=== PATIENT | male | born 1960 | race Two or more races ===

== ENCOUNTER 2017-01-22 13:11 | Emergency (ER) | payer OTHER ==
[~2017-01-22] VITALS: Ht 182.9 cm; Wt 86.2 kg
[~2017-01-22 13:11] MED LIST: ALPR0.5T PO; DOCU100C58 PO; PANT40TA2 PO
--- NOTE | 2017-01-22 13:25 | NUR ---
PT AMBULATORY TO ER BED 11. C/O COUGH AND CONGESTION X 2 WEEKS. ALSO C/O LOWER BACK PAIN. NO RECENT TRAUMA. WORKS ON CONSTRUCTION. AWAITING MD VALDERRAMA.
--- NOTE | 2017-01-22 13:29 | NUR ---
DAVIDE SENIOR RADIATION PROTECTION TECHNICIAN AT BEDSIDE FOR EVAL.
--- NOTE | 2017-01-22 13:53 | NUR ---
RADIOLOGY AT BEDSIDE FOR CHEST XRAY.
[2017-01-22] MEDS ORDERED: predniSONE 20 MG TABLET ONE (15:28)
[2017-01-22] MEDS ORDERED: predniSONE 20 MG TABLET PO ONE (15:30)
--- NOTE | 2017-01-22 15:39 | NUR ---
Patient discharged to home in stable condition. Written and verbal after care instructions given. Patient verbalizes understanding of instruction.
[2017-01-22 15:40] VITALS: BP 115/76
== END 2017-01-22 15:41 | disposition home or self-care (01) ==
LOC: ER 13:12
DX: J20.9 Acute bronchitis, unspecified (principal); I10 Essential (primary) hypertension; F41.9 Anxiety disorder, unspecified; K21.9 Gastro-esophageal reflux disease without esophagitis; J45.909 Unspecified asthma, uncomplicated; Z88.8 Allergy status to other drugs, medicaments and biological substances; Z98.890 Other specified postprocedural states; Z87.442 Personal history of urinary calculi
CPT/HCPCS: 71010; 99283; A4606; J7040; J7512; Z7610

== ENCOUNTER 2017-01-28 14:32 | Emergency (ER) | payer OTHER ==
[~2017-01-28] VITALS: Ht 180.3 cm; Wt 93.4 kg
--- NOTE | 2017-01-28 14:45 | NUR ---
PT CAME IN FOR ANXIETY, SUBSTERNAL CHEST PAIN X 2 DAYS. TOOK ATIVAN AND XANAX TODAY IN AM. NAD NOTED. VSS. SEEN BY MD FOR EVAL. SAFETY AND COMFORT MEASURES PROVIDED. WILL MONITOR.
[2017-01-28 15:09] LABS: BASOPHILS % (AUTO) 0.4 % (0.0-2.0); EOSINOPHILS # (AUTO) 0.1 /CMM (0.0-0.7); EOSINOPHILS % (AUTO) 1.3 % (0.0-6.0); HEMATOCRIT 40 % (39-51); HEMOGLOBIN 13.1 g/dL (13.5-17.5); LYMPHOCYTES # (AUTO) 1.8 /CMM (0.8-4.8); LYMPHOCYTES % (AUTO) 28.7 % (20.0-44.0); MEAN CORPUSCULAR HEMOGLOBIN 29 PG (26.0-33.0); MEAN CORPUSCULAR HGB CONC 33 g/dl (31.0-36.0); MEAN CORPUSCULAR VOLUME 89 fL (80-96); MONOCYTES # (AUTO) 0.6 /CMM (0.1-1.30); MONOCYTES % (AUTO) 9.7 % (2.0-12.0); NEUTROPHILS # (AUTO) 3.8 /CMM (1.8-8.9); NEUTROPHILS % (AUTO) 59.9 % (43.0-81.0); PLATELET COUNT (AUTO) 227 /CMM (150-450); RDW COEFFICIENT OF VARIATION 12.6 (11.5-15.0); RED BLOOD CELL COUNT(AUTO) 4.49 MIL/uL (4.5-6.0); WHITE BLOOD COUNT (AUTO) 6.3 K/uL (4.3-11.0)
[2017-01-28 15:19] LABS: CALCIUM, SERUM 8.3 mg/dL (8.5-10.1); CARBON DIOXIDE 29 mmol/L (21-32); CHLORIDE 104 mmol/L (98-107); CREATININE 1.1 mg/dL (0.6-1.3); GLUCOSE 100 mg/dL (74-106); POTASSIUM 3.4 mmol/L (3.5-5.1); SODIUM SERUM 140 mmol/L (136-145); UREA NITROGEN, BLOOD 17 mg/dL (7-18)
[2017-01-28 15:23] LABS: INR 0.93 (0.87-1.13); PROTHROMBIN TIME 9.7 SECS (9.5-12.7)
[2017-01-28 15:28] LABS: TROPONIN I < 0.017 ng/mL (0.00-0.056)
[2017-01-28 15:53] VITALS: BP 138/75
--- NOTE | 2017-01-28 15:53 | NUR ---
Patient discharged to home in stable condition. Written and verbal after care instructions given. Patient verbalizes understanding of instruction.
== END 2017-01-28 15:54 | disposition home or self-care (01) ==
LOC: ER 14:34
DX: F41.9 Anxiety disorder, unspecified (principal); R07.89 Other chest pain; I10 Essential (primary) hypertension; J45.909 Unspecified asthma, uncomplicated; K21.9 Gastro-esophageal reflux disease without esophagitis; Z87.442 Personal history of urinary calculi
CPT/HCPCS: 36415; 71010; 80048; 84484; 85025; 85730; 93005; 99285; A4606; Z7610

== ENCOUNTER 2017-02-12 13:24 | Emergency (ER) | payer OTHER ==
[~2017-02-12] VITALS: Ht 180.3 cm; Wt 88.9 kg
--- NOTE | 2017-02-12 13:26 | NUR ---
PT AMBULATORY TO ER BED 10. C/O CHEST PAIN SINCE LAST NIGHT. PT APPEARS ANXIOUS. SEEN IN ER MULTIPLE TIME FOR SAME REASON. PLACED ON MONITOR. NAD NOTED. AWAITING MD VALDERRAMA.
--- NOTE | 2017-02-12 13:48 | NUR ---
DAVIDE UNDERCOLLAR BASTER AT BEDSIDE FOR EVAL.
--- NOTE | 2017-02-12 14:26 | NUR ---
RADIOLOGY AT BEDSIDE FOR CHEST XRAY.
[2017-02-12] MEDS ORDERED: ASPIRIN 325 MG TABLET ONE (14:28)
[2017-02-12] MEDS ORDERED: ASPIRIN 325 MG TABLET PO ONE (14:30)
[2017-02-12 14:32] LABS: BASOPHILS % (AUTO) 0.4 % (0.0-2.0); EOSINOPHILS # (AUTO) 0.1 /CMM (0.0-0.7); EOSINOPHILS % (AUTO) 2.4 % (0.0-6.0); HEMATOCRIT 40 % (39-51); HEMOGLOBIN 13.4 g/dL (13.5-17.5); LYMPHOCYTES # (AUTO) 1.3 /CMM (0.8-4.8); LYMPHOCYTES % (AUTO) 30.1 % (20.0-44.0); MEAN CORPUSCULAR HEMOGLOBIN 30 PG (26.0-33.0); MEAN CORPUSCULAR HGB CONC 34 g/dl (31.0-36.0); MEAN CORPUSCULAR VOLUME 89 fL (80-96); MONOCYTES # (AUTO) 0.5 /CMM (0.1-1.30); MONOCYTES % (AUTO) 11.3 % (2.0-12.0); NEUTROPHILS # (AUTO) 2.5 /CMM (1.8-8.9); NEUTROPHILS % (AUTO) 55.8 % (43.0-81.0); PLATELET COUNT (AUTO) 223 /CMM (150-450); RDW COEFFICIENT OF VARIATION 13.9 (11.5-15.0); RED BLOOD CELL COUNT(AUTO) 4.51 MIL/uL (4.5-6.0); WHITE BLOOD COUNT (AUTO) 4.4 K/uL (4.3-11.0)
[2017-02-12 14:42] LABS: CALCIUM, SERUM 8.4 mg/dL (8.5-10.1); CARBON DIOXIDE 25 mmol/L (21-32); CHLORIDE 108 mmol/L (98-107); GLUCOSE 94 mg/dL (74-106); SODIUM SERUM 143 mmol/L (136-145)
[2017-02-12 14:43] LABS: UREA NITROGEN, BLOOD 16 mg/dL (7-18)
[2017-02-12 14:46] LABS: CREATININE 1.3 mg/dL (0.6-1.3)
[2017-02-12 14:47] LABS: INR 0.9 (0.87-1.13); PROTHROMBIN TIME 9.6 SECS (9.5-12.7)
[2017-02-12 14:54] LABS: TROPONIN I < 0.017 ng/mL (0.00-0.056)
[2017-02-12 15:52] VITALS: BP 123/76
--- NOTE | 2017-02-12 15:52 | NUR ---
Patient discharged to home in stable condition. Written and verbal after care instructions given. Patient verbalizes understanding of instruction.IV removed. Catheter intact and site benign. Pressure and 4x4 applied to site. No bleeding noted.
== END 2017-02-12 15:53 | disposition home or self-care (01) ==
LOC: ER 13:26
DX: R07.89 Other chest pain (principal); F41.9 Anxiety disorder, unspecified; I10 Essential (primary) hypertension; K21.9 Gastro-esophageal reflux disease without esophagitis; J45.909 Unspecified asthma, uncomplicated; Z88.8 Allergy status to other drugs, medicaments and biological substances; Z87.442 Personal history of urinary calculi
CPT/HCPCS: 36415; 71010; 80048; 84484; 85025; 85730; 93005 ×2; 99285; A4606; Z7610

== ENCOUNTER 2017-04-05 11:43 | Emergency (ER) | payer OTHER ==
[~2017-04-05] VITALS: Ht 180.3 cm; Wt 93.9 kg
[2017-04-05 12:10] VITALS: BP 114/73
--- NOTE | 2017-04-05 12:10 | NUR ---
bib self c/o hemorrhoid pain since tuesday, pt states had hemorhhoids before, nad noted, vss, skin warm, pt put on hospital gown, waiting for md tang.
== END 2017-04-05 12:57 | disposition home or self-care (01) ==
LOC: ER 11:44
DX: K59.4 Anal spasm (principal); I10 Essential (primary) hypertension; J45.909 Unspecified asthma, uncomplicated; K21.9 Gastro-esophageal reflux disease without esophagitis; F41.9 Anxiety disorder, unspecified; Z87.442 Personal history of urinary calculi; Z98.890 Other specified postprocedural states; Z88.8 Allergy status to other drugs, medicaments and biological substances
CPT/HCPCS: 99283; A4606; Z7610

== ENCOUNTER 2017-07-06 14:32 | Emergency (ER) | payer OTHER ==
[~2017-07-06] VITALS: Ht 180.3 cm; Wt 94.3 kg
[2017-07-06 14:41] VITALS: BP 114/68
== END 2017-07-06 15:36 | disposition home or self-care (01) ==
LOC: ER 14:33
DX: F41.9 Anxiety disorder, unspecified (principal); N40.1 Benign prostatic hyperplasia with lower urinary tract symptoms; I10 Essential (primary) hypertension; K21.9 Gastro-esophageal reflux disease without esophagitis; J45.909 Unspecified asthma, uncomplicated; Z87.442 Personal history of urinary calculi; Z88.8 Allergy status to other drugs, medicaments and biological substances
CPT/HCPCS: A4606; Z7610

== ENCOUNTER 2017-12-20 18:16 | Emergency (ER) | payer OTHER ==
[~2017-12-20] VITALS: Ht 180.3 cm; Wt 95.7 kg
[2017-12-20 19:00] VITALS: BP 106/78
[2017-12-20] MEDS ORDERED: CARISOPRODOL 350 MG TABLET ONE (20:22)
[2017-12-20] MEDS ORDERED: CARISOPRODOL 350 MG TABLET PO ONE (20:30)
== END 2017-12-20 20:25 | disposition home or self-care (01) ==
LOC: ER 18:26
DX: M25.512 Pain in left shoulder (principal); M25.511 Pain in right shoulder; R51 Headache; R42 Dizziness and giddiness; M54.2 Cervicalgia; K21.9 Gastro-esophageal reflux disease without esophagitis; I10 Essential (primary) hypertension; J45.909 Unspecified asthma, uncomplicated; F41.9 Anxiety disorder, unspecified; Z87.442 Personal history of urinary calculi; Z98.890 Other specified postprocedural states; Z88.8 Allergy status to other drugs, medicaments and biological substances
CPT/HCPCS: A4606; Z7610

== ENCOUNTER 2017-12-31 11:56 | Emergency (ER) | payer OTHER ==
[~2017-12-31] VITALS: Ht 180.3 cm; Wt 95.7 kg
--- NOTE | 2017-12-31 12:18 | NUR ---
PT TO ED DT LLQ PAIN AND NAUSEA SINCE YESTERDAY NIGHT. ABDOMEN NON TENDERED AND NON DISTENDED, SKIN IS WARM TO TOUCH AND NON DIAPHORETIC, PT IS AFEBRILE. VSS
--- NOTE | 2017-12-31 12:19 | NUR ---
LINE STARTED ON L AC G18, BLOOD DRAWN FROM LINE AND SENT TO LAB
[2017-12-31] MEDS ORDERED: IV NS 0.9% 1,000 ML BAG IV ONE (12:30)
[2017-12-31 12:31] LABS: BASOPHILS % (AUTO) 0.5 % (0.0-2.0); HEMATOCRIT 43 % (39-51); HEMOGLOBIN 14.5 g/dL (13.5-17.5); LYMPHOCYTES # (AUTO) 1.4 /CMM (0.8-4.8); LYMPHOCYTES % (AUTO) 27.9 % (20.0-44.0); MEAN CORPUSCULAR HEMOGLOBIN 30 PG (26.0-33.0); MEAN CORPUSCULAR HGB CONC 34 g/dl (31.0-36.0); MEAN CORPUSCULAR VOLUME 89 fL (80-96); MONOCYTES # (AUTO) 0.6 /CMM (0.1-1.30); NEUTROPHILS # (AUTO) 2.8 /CMM (1.8-8.9); NEUTROPHILS % (AUTO) 58.6 % (43.0-81.0); PLATELET COUNT (AUTO) 233 /CMM (150-450); RDW COEFFICIENT OF VARIATION 12.9 (11.5-15.0); RED BLOOD CELL COUNT(AUTO) 4.82 MIL/uL (4.5-6.0); WHITE BLOOD COUNT (AUTO) 4.8 K/uL (4.3-11.0)
[2017-12-31 12:43] LABS: APPEARANCE,URINE Clear (CLEAR); BILIRUBIN,URINE Negative (NEGATIVE); BLOOD, URINE Negative Ery/uL (NEGATIVE); COLOR,URINE Yellow (YELLOW); KETONES,URINE Trace (NEGATIVE); LEUKOCYTE ESTERASE ,URINE Negative (NEGATIVE); NITRITE, URINE Negative (NEGATIVE); PROTEIN,URINE Negative (NEGATIVE); UGLUCOSE Negative (NEGATIVE); UROBILINOGEN,URINE 0.2 EU/dL (0.2)
[2017-12-31 12:45] LABS: CALCIUM, SERUM 8.7 mg/dL (8.5-10.1); CREATININE 1.1 mg/dL (0.6-1.3)
[2017-12-31 12:55] LABS: RBC,URINE 0-2 /HPF (0-2)
[2017-12-31 12:56] LABS: ALBUMIN 3.9 g/dL (3.4-5.0); BILIRUBIN,DIRECT 0.1 mg/dL (0.0-0.2); BILIRUBIN,TOTAL 0.4 mg/dL (0.2-1.0); TOTAL PROTEIN, SERUM 7.3 g/dL (6.4-8.2)
[2017-12-31 12:56] LABS: BACTERIA,URINE Rare /HPF (None Seen); SQUAMOUS EPITHELIAL CELL,UR Rare /HPF (None Seen); WBC,URINE 0-2 /HPF (0-3)
[2017-12-31 13:56] VITALS: BP 124/80
--- NOTE | 2017-12-31 13:56 | NUR ---
Patient discharged to home in stable condition. Written and verbal after care instructions given. Patient verbalizes understanding of instruction.IV removed. Catheter intact and site benign. Pressure and 4x4 applied to site. No bleeding noted. PT AMBULATED WITH STEADY GAIT UPON DC
== END 2017-12-31 13:57 | disposition home or self-care (01) ==
LOC: ER 12:01
DX: R10.32 Left lower quadrant pain (principal); I10 Essential (primary) hypertension; J45.909 Unspecified asthma, uncomplicated; K21.9 Gastro-esophageal reflux disease without esophagitis; F41.9 Anxiety disorder, unspecified; N40.0 Benign prostatic hyperplasia without lower urinary tract symptoms; Z98.890 Other specified postprocedural states; Z87.442 Personal history of urinary calculi; Z88.8 Allergy status to other drugs, medicaments and biological substances; Z79.899 Other long term (current) drug therapy
CPT/HCPCS: 36415; 74176; 80048; 80076; 81001; 83690; 85025; 99285; A4606; J7030; Z7610; 81000-TC

== ENCOUNTER 2018-03-06 16:30 | Emergency (ER) | payer OTHER ==
[~2018-03-06] VITALS: Ht 175.3 cm; Wt 74.8 kg
--- NOTE | 2018-03-06 17:05 | NUR ---
AAOX3, C/O mid sternal chest pain, non radiating x 3 days denies any SOB. PLACED ON THE MONITOR. WILL CONTINUOUSLY MONITOR THE PATIENT. AWAITING MD FOR EVAL.
--- NOTE | 2018-03-06 17:20 | NUR ---
NEW IV STARTED ON RAC, 18G. BLOOD DRAWN AND SENT TO LAB.
[2018-03-06 17:38] LABS: CALCIUM, SERUM 8.6 mg/dL (8.5-10.1); CARBON DIOXIDE 29 mmol/L (21-32); CHLORIDE 102 mmol/L (98-107); CREATININE 1.3 mg/dL (0.6-1.3); GLUCOSE 109 mg/dL (74-106); SODIUM SERUM 134 mmol/L (136-145); UREA NITROGEN, BLOOD 20 mg/dL (7-18)
[2018-03-06 17:45] LABS: TROPONIN I < 0.017 ng/mL (0.00-0.056)
[2018-03-06 17:50] LABS: ALANINE AMINOTRANSFERASE 21 U/L (12-78); ALBUMIN 3.8 g/dL (3.4-5.0); ALKALINE PHOSPHATASE 97 U/L (46-116); ASPARTATE AMINOTRANSFERASE 21 U/L (15-37); BILIRUBIN,DIRECT 0.1 mg/dL (0.0-0.2); BILIRUBIN,TOTAL 0.7 mg/dL (0.2-1.0); TOTAL PROTEIN, SERUM 7.5 g/dL (6.4-8.2)
[2018-03-06 17:51] LABS: B-TYPE NATRIURETIC PEPTIDE 8 PG/ML (0-125)
[2018-03-06 17:57] LABS: D-DIMER 0.36 mg/L(FEU (0.17-0.50); INR 0.91 (0.87-1.13)
[2018-03-06 17:58] LABS: BASOPHILS % (AUTO) 0.5 % (0.0-2.0); HEMATOCRIT 41 % (39-51); HEMOGLOBIN 13.8 g/dL (13.5-17.5); LYMPHOCYTES # (AUTO) 1.5 /CMM (0.8-4.8); MEAN CORPUSCULAR HGB CONC 34 g/dl (31.0-36.0); MEAN CORPUSCULAR VOLUME 88 fL (80-96); MONOCYTES # (AUTO) 0.7 /CMM (0.1-1.30); MONOCYTES % (AUTO) 13.1 % (2.0-12.0); NEUTROPHILS # (AUTO) 2.7 /CMM (1.8-8.9); NEUTROPHILS % (AUTO) 56.4 % (43.0-81.0); PLATELET COUNT (AUTO) 299 /CMM (150-450); RDW COEFFICIENT OF VARIATION 12.6 (11.5-15.0); RED BLOOD CELL COUNT(AUTO) 4.67 MIL/uL (4.5-6.0)
--- NOTE | 2018-03-06 19:23 | NUR ---
PATIENT RESTING COMFORTABLY WITH FAMILY AT BEDSIDE. NAD. VSS. WILL CONTINUE TO MONITOR.
--- NOTE | 2018-03-06 19:28 | NUR ---
PT OK TO DISCHARGE PER RAKEL SINGH. IV removed. Catheter intact and site benign. Pressure and 4x4 applied to site. No bleeding noted.Patient discharged to home in stable condition. Written and verbal after care instructions given. Patient verbalizes understanding of instruction.Patient is awake and alert to self, day, and place. PT ambulatory with a steady gait
[2018-03-06 19:29] VITALS: BP 124/78
== END 2018-03-06 19:30 | disposition home or self-care (01) ==
LOC: ER 16:36
DX: R07.89 Other chest pain (principal); J45.909 Unspecified asthma, uncomplicated; K21.9 Gastro-esophageal reflux disease without esophagitis; F41.9 Anxiety disorder, unspecified; N40.0 Benign prostatic hyperplasia without lower urinary tract symptoms; I10 Essential (primary) hypertension; I49.8 Other specified cardiac arrhythmias; Z87.442 Personal history of urinary calculi; Z98.890 Other specified postprocedural states; Z88.8 Allergy status to other drugs, medicaments and biological substances
CPT/HCPCS: 36415; 71045; 80048; 80076; 83880; 84484; 85025; 85378; 85730; 93005; 99285; A4606; Z7610

== ENCOUNTER → 2018-03-18 | Emergency (ER) | payer OTHER ==
[~2018-03-18] VITALS: Ht 180.3 cm; Wt 93.4 kg
[~2018-03-18] MED LIST changes: +ONDANSETRON HCL/PF 4 MG/2 ML VIAL IVP ONE; +ONDANSETRON HCL/PF 4 MG/2 ML VIAL ONE
--- NOTE | 2018-03-18 11:11 | NUR ---
PT RC'D TO ER C/O ABD PAIN ONE DAY IV SATRTED 18G RTAC LABS DRAWNS SENT TO LAB IV ZOFRAN 4 MG IVP NOW PER MD ORDER
[2018-03-18 11:30] LABS: CALCIUM, SERUM 8.8 mg/dL (8.5-10.1); CREATININE 1.2 mg/dL (0.6-1.3); POTASSIUM 3.8 mmol/L (3.5-5.1)
[2018-03-18 11:34] LABS: BASOPHILS % (AUTO) 0.3 % (0.0-2.0); EOSINOPHILS % (AUTO) 1.2 % (0.0-6.0); HEMATOCRIT 43 % (39-51); HEMOGLOBIN 13.9 g/dL (13.5-17.5); LYMPHOCYTES # (AUTO) 1.1 /CMM (0.8-4.8); LYMPHOCYTES % (AUTO) 20.3 % (20.0-44.0); MEAN CORPUSCULAR HGB CONC 33 g/dl (31.0-36.0); MEAN CORPUSCULAR VOLUME 91 fL (80-96); MONOCYTES # (AUTO) 0.6 /CMM (0.1-1.30); MONOCYTES % (AUTO) 11.8 % (2.0-12.0); NEUTROPHILS # (AUTO) 3.6 /CMM (1.8-8.9); NEUTROPHILS % (AUTO) 66.4 % (43.0-81.0); PLATELET COUNT (AUTO) 225 /CMM (150-450); RDW COEFFICIENT OF VARIATION 14.2 (11.5-15.0); RED BLOOD CELL COUNT(AUTO) 4.69 MIL/uL (4.5-6.0); WHITE BLOOD COUNT (AUTO) 5.4 K/uL (4.3-11.0)
[2018-03-18 11:36] LABS: ALBUMIN 3.7 g/dL (3.4-5.0); BILIRUBIN,DIRECT 0.1 mg/dL (0.0-0.2); BILIRUBIN,TOTAL 0.5 mg/dL (0.2-1.0); TOTAL PROTEIN, SERUM 7.3 g/dL (6.4-8.2)
--- NOTE | 2018-03-18 12:04 | NUR ---
PT. VERBALIZED UNDERSTANDING OF AFTERCARE INSTRUCTIONS.IV removed. Catheter intact and site benign. Pressure and 4x4 applied to site. No bleeding noted.Patient discharged to home in stable condition. Written and verbal after care instructions given. Patient verbalizes understanding of instruction.
[2018-03-18 12:05] VITALS: BP 122/53
== END | disposition home or self-care (01) ==
LOC: ER 10:11
DX: R10.32 Left lower quadrant pain (principal); I10 Essential (primary) hypertension; F41.9 Anxiety disorder, unspecified; Z88.8 Allergy status to other drugs, medicaments and biological substances; Z87.19 Personal history of other diseases of the digestive system
CPT/HCPCS: 36415; 80048; 80076; 83690; 85025; 96374; 99284; A4606; J2405; Z7610

== ENCOUNTER 2018-10-18 18:53 | Emergency (ER) | payer OTHER ==
[~2018-10-18] VITALS: Ht 180.3 cm; Wt 98.0 kg
[~2018-10-18 18:53] MED LIST changes: -ONDANSETRON HCL/PF 4 MG/2 ML VIAL IVP ONE; -ONDANSETRON HCL/PF 4 MG/2 ML VIAL ONE
[2018-10-18] MEDS ORDERED: ONDANSETRON HCL/PF 4 MG/2 ML VIAL ONE (19:09)
[2018-10-18] MEDS: ONDANSETRON HCL/PF 4 MG/2 ML VIAL IVP ONE (19:13)
[2018-10-18] MEDS: IV NS 0.9% 1,000 ML BAG IV ONE (19:13)
[2018-10-18 19:14] LABS: BASOPHILS % (AUTO) 0.4 % (0.0-2.0); EOSINOPHILS % (AUTO) 1.4 % (0.0-6.0); HEMATOCRIT 43 % (39-51); HEMOGLOBIN 14.5 g/dL (13.5-17.5); LYMPHOCYTES % (AUTO) 36.4 % (20.0-44.0); MEAN CORPUSCULAR HGB CONC 34 g/dl (31.0-36.0); MEAN CORPUSCULAR VOLUME 89 fL (80-96); MONOCYTES # (AUTO) 0.7 /CMM (0.1-1.30); MONOCYTES % (AUTO) 12.5 % (2.0-12.0); NEUTROPHILS # (AUTO) 2.8 /CMM (1.8-8.9); NEUTROPHILS % (AUTO) 49.3 % (43.0-81.0); PLATELET COUNT (AUTO) 226 /CMM (150-450); RED BLOOD CELL COUNT(AUTO) 4.83 MIL/uL (4.5-6.0); WHITE BLOOD COUNT (AUTO) 5.6 K/uL (4.3-11.0)
[2018-10-18 19:30] LABS: CALCIUM, SERUM 8.6 mg/dL (8.5-10.1); CARBON DIOXIDE 31 mmol/L (21-32); CHLORIDE 102 mmol/L (98-107); CREATININE 1.3 mg/dL (0.6-1.3); GLUCOSE 83 mg/dL (74-106); POTASSIUM 3.9 mmol/L (3.5-5.1); SODIUM SERUM 138 mmol/L (136-145); UREA NITROGEN, BLOOD 19 mg/dL (7-18)
[2018-10-18 19:40] LABS: ALANINE AMINOTRANSFERASE 22 U/L (12-78); ALBUMIN 4.1 g/dL (3.4-5.0); ALKALINE PHOSPHATASE 88 U/L (46-116); ASPARTATE AMINOTRANSFERASE 21 U/L (15-37); BILIRUBIN,DIRECT 0.1 mg/dL (0.0-0.2); BILIRUBIN,TOTAL 0.5 mg/dL (0.2-1.0); LIPASE 255 U/L (73-393); TOTAL PROTEIN, SERUM 7.4 g/dL (6.4-8.2)
[2018-10-18 22:28] VITALS: BP 127/74
== END 2018-10-18 22:29 | disposition home or self-care (01) ==
LOC: ER 18:55
DX: R19.7 Diarrhea, unspecified (principal); K58.9 Irritable bowel syndrome, unspecified; I10 Essential (primary) hypertension; F41.9 Anxiety disorder, unspecified; Z88.6 Allergy status to analgesic agent
CPT/HCPCS: 36415; 80048-TC; 80076-TC; 83690-TC; 84484-TC; 85025-TC; J2405; J7030

== ENCOUNTER 2019-05-03 14:01 | Emergency (ER) | payer OTHER ==
[~2019-05-03] VITALS: Ht 180.3 cm; Wt 97.5 kg
[2019-05-03 14:24] VITALS: BP 123/78
--- NOTE | 2019-05-03 15:31 | NUR ---
Patient discharged to home in stable condition. Written and verbal after care instructions given. Patient verbalizes understanding of instruction.
== END 2019-05-03 15:32 | disposition home or self-care (01) ==
LOC: ER 14:01
DX: M25.562 Pain in left knee (principal); I10 Essential (primary) hypertension; K58.9 Irritable bowel syndrome, unspecified; F41.9 Anxiety disorder, unspecified; Z88.6 Allergy status to analgesic agent; Z79.899 Other long term (current) drug therapy
CPT/HCPCS: 73564-TC

== ENCOUNTER → 2019-07-14 | Emergency (ER) | payer OTHER ==
[~2019-07-14] VITALS: Ht 180.3 cm; Wt 97.1 kg
[2019-07-14 11:46] VITALS: BP 107/71
== END | disposition home or self-care (01) ==
LOC: ER 11:39
DX: M25.562 Pain in left knee (principal); I10 Essential (primary) hypertension; F41.9 Anxiety disorder, unspecified; K58.9 Irritable bowel syndrome, unspecified; Z91.048 Other nonmedicinal substance allergy status; Z79.899 Other long term (current) drug therapy

== ENCOUNTER 2019-09-16 10:31 | Emergency (ER) | payer OTHER ==
[~2019-09-16] VITALS: Ht 180.3 cm; Wt 95.3 kg
--- NOTE | 2019-09-16 11:00 | NUR ---
SOB SINCE TUESDAY, USING ALBUTEROL FOR ASTHMA. PATIENT A/OX4, BREATHING EVEN AND UNLABORED, ABLE TO TAKE FULL SENTENCES, NO WHEEZING NOTED. NEEDS ATTENDED. KEPT COMFORTABLE.
--- NOTE | 2019-09-16 12:23 | NUR ---
Patient discharged to home in stable condition. Written and verbal after care instructions given. Patient verbalizes understanding of instruction.
[2019-09-16 12:24] VITALS: BP 108/68
== END 2019-09-16 12:24 | disposition home or self-care (01) ==
LOC: ER 10:36
DX: J18.9 Pneumonia, unspecified organism (principal); I10 Essential (primary) hypertension; F41.9 Anxiety disorder, unspecified; Z91.048 Other nonmedicinal substance allergy status; Z79.899 Other long term (current) drug therapy
CPT/HCPCS: 71045-TC

== ENCOUNTER 2019-09-21 13:11 | Emergency (ER) | payer OTHER ==
[~2019-09-21] VITALS: Ht 185.4 cm; Wt 95.3 kg
--- NOTE | 2019-09-21 13:22 | NUR ---
bill presley at bedside for eval.
[2019-09-21] MEDS ORDERED: ONDANSETRON HCL/PF 4 MG/2 ML VIAL ONE (13:29)
[2019-09-21] MEDS: ONDANSETRON HCL/PF 4 MG/2 ML VIAL IM ONE (13:36)
--- NOTE | 2019-09-21 14:00 | NUR ---
PT. VERBALIZED UNDERSTANDING OF AFTERCARE INSTRUCTIONS.Patient discharged to home in stable condition. Written and verbal after care instructions given. Patient verbalizes understanding of instruction.
[2019-09-21 14:01] VITALS: BP 132/70
== END 2019-09-21 14:09 | disposition home or self-care (01) ==
LOC: ER 13:17
DX: K58.9 Irritable bowel syndrome, unspecified (principal); I10 Essential (primary) hypertension; Z88.6 Allergy status to analgesic agent; Z79.899 Other long term (current) drug therapy
CPT/HCPCS: 96372; 99283; J2405

== ENCOUNTER 2019-10-31 10:15 | Emergency (ER) | payer OTHER ==
[~2019-10-31] VITALS: Ht 180.3 cm; Wt 94.8 kg
--- NOTE | 2019-10-31 10:20 | NUR ---
PT BIB SELF C/O R TESTICULAR PAIN FOR 1 WEEK, PT IS AAOX4, NOT IN RESPIRATORY DISTRESS, V/S STABLE, KEPT RESTED AND COMFORTABLE, WILL CONTINUE TO MONITOR.
--- NOTE | 2019-10-31 10:48 | NUR ---
SEEN AND EXAMINED BY .
--- NOTE | 2019-10-31 10:52 | NUR ---
URINE SPECIMEN COLLECTED AND SENT TO LAB.
--- NOTE | 2019-10-31 10:55 | NUR ---
NNAMDI BALDERAS AT BEDSIDE FOR BLOOD DRAW.
[2019-10-31 11:04] LABS: APPEARANCE,URINE Clear (CLEAR); BILIRUBIN,URINE Negative (NEGATIVE); BLOOD, URINE Negative Ery/uL (NEGATIVE); COLOR,URINE Yellow (YELLOW); KETONES,URINE Negative (NEGATIVE); LEUKOCYTE ESTERASE ,URINE Negative (NEGATIVE); NITRITE, URINE Negative (NEGATIVE); PROTEIN,URINE Negative (NEGATIVE); UGLUCOSE Negative (NEGATIVE)
--- NOTE | 2019-10-31 11:04 | NUR ---
TECH AT BEDSIDE FOR US.
[2019-10-31 11:13] LABS: BASOPHILS % (AUTO) 0.6 % (0.0-2.0); EOSINOPHILS % (AUTO) 0.9 % (0.0-6.0); HEMATOCRIT 45 % (39-51); HEMOGLOBIN 14.9 g/dL (13.5-17.5); LYMPHOCYTES # (AUTO) 1.1 /CMM (0.8-4.8); LYMPHOCYTES % (AUTO) 22.6 % (20.0-44.0); MEAN CORPUSCULAR HGB CONC 33 g/dl (31.0-36.0); MEAN CORPUSCULAR VOLUME 91 fL (80-96); MONOCYTES # (AUTO) 0.5 /CMM (0.1-1.30); MONOCYTES % (AUTO) 11.1 % (2.0-12.0); NEUTROPHILS # (AUTO) 3.2 /CMM (1.8-8.9); NEUTROPHILS % (AUTO) 64.8 % (43.0-81.0); PLATELET COUNT (AUTO) 235 /CMM (150-450); RED BLOOD CELL COUNT(AUTO) 4.92 MIL/uL (4.5-6.0); WHITE BLOOD COUNT (AUTO) 4.9 K/uL (4.3-11.0)
[2019-10-31 11:15] LABS: CALCIUM, SERUM 8.6 mg/dL (8.5-10.1); CREATININE 1.2 mg/dL (0.6-1.3); POTASSIUM 3.7 mmol/L (3.5-5.1)
[2019-10-31] MEDS ORDERED: IOHEXOL-300 100 ML VIAL IV ONE (11:43)
[2019-10-31] MEDS ORDERED: IV NS 0.9% 250 ML IV ONE (11:43)
[2019-10-31] MEDS ORDERED: CT SWABBABLE VALVE TRANS SET 1 EA INFUS.SET MC ONE (11:43)
--- NOTE | 2019-10-31 11:56 | NUR ---
PT IS BACK FROM THE CT SCAN.
--- NOTE | 2019-10-31 13:02 | NUR ---
Patient discharged to home in stable condition. Written and verbal after care instructions given. Patient verbalizes understanding of instruction. Pt ambulatory with a steady gait
[2019-10-31 13:03] VITALS: BP 117/75
== END 2019-10-31 13:27 | disposition home or self-care (01) ==
LOC: ER 10:15
DX: N50.811 Right testicular pain (principal); R10.31 Right lower quadrant pain; I10 Essential (primary) hypertension; F41.9 Anxiety disorder, unspecified; Z91.048 Other nonmedicinal substance allergy status; Z79.899 Other long term (current) drug therapy
CPT/HCPCS: 36415; 74176; 76870; 80048; 81001; 83605; 85025; 87086; 99285; J7050; 81000-TC; Q9967

== ENCOUNTER 2020-01-06 11:37 | Emergency (ER) | payer OTHER ==
[~2020-01-06] VITALS: Ht 180.3 cm; Wt 94.3 kg
[2020-01-06 11:49] VITALS: BP 129/77
--- NOTE | 2020-01-06 12:14 | NUR ---
Patient discharged to home in stable condition. Written and verbal after care instructions given. Patient verbalizes understanding of instruction.
== END 2020-01-06 12:15 | disposition home or self-care (01) ==
LOC: ER 11:44
DX: K12.2 Cellulitis and abscess of mouth (principal); I10 Essential (primary) hypertension; F41.9 Anxiety disorder, unspecified; Z91.048 Other nonmedicinal substance allergy status; Z79.899 Other long term (current) drug therapy

== ENCOUNTER 2020-01-23 15:42 | Emergency (ER) | payer OTHER ==
[~2020-01-23] VITALS: Ht 180.3 cm; Wt 93.9 kg
--- NOTE | 2020-01-23 16:26 | NUR ---
BIBS COMING FROM WORK TO ER BED. AAOX4. NOT IN RESP DISTRESS. AMBULATORY. CAME IN FOR PAIN ON HIS L GROIN X 1 WEEK. PT RATES HIS PAIN 6/10 PULSATING SENSATION. NOTED PALPABLE MASS ON L GROIN UPON PALPATION. AWAITING MD FOR EVAL.
[2020-01-23 17:06] LABS: APPEARANCE,URINE Clear (CLEAR); BILIRUBIN,URINE Negative (NEGATIVE); BLOOD, URINE Negative Ery/uL (NEGATIVE); COLOR,URINE Light yellow (YELLOW); KETONES,URINE Negative (NEGATIVE); LEUKOCYTE ESTERASE ,URINE Negative (NEGATIVE); NITRITE, URINE Negative (NEGATIVE); PROTEIN,URINE Negative (NEGATIVE); UGLUCOSE Negative (NEGATIVE); UROBILINOGEN,URINE 0.2 EU/dL (0.2)
[2020-01-23 17:13] LABS: BASOPHILS % (AUTO) 0.4 % (0.0-2.0); EOSINOPHILS % (AUTO) 1.8 % (0.0-6.0); HEMATOCRIT 39 % (39-51); HEMOGLOBIN 13.1 g/dL (13.5-17.5); LYMPHOCYTES # (AUTO) 1.5 /CMM (0.8-4.8); LYMPHOCYTES % (AUTO) 26.9 % (20.0-44.0); MEAN CORPUSCULAR HGB CONC 33 g/dl (31.0-36.0); MEAN CORPUSCULAR VOLUME 92 fL (80-96); MONOCYTES # (AUTO) 0.8 /CMM (0.1-1.30); MONOCYTES % (AUTO) 13.6 % (2.0-12.0); NEUTROPHILS # (AUTO) 3.2 /CMM (1.8-8.9); NEUTROPHILS % (AUTO) 57.3 % (43.0-81.0); PLATELET COUNT (AUTO) 246 /CMM (150-450); RED BLOOD CELL COUNT(AUTO) 4.27 MIL/uL (4.5-6.0); WHITE BLOOD COUNT (AUTO) 5.6 K/uL (4.3-11.0)
[2020-01-23 17:22] LABS: CREATININE 1.3 mg/dL (0.6-1.3)
[2020-01-23 20:17] VITALS: BP 127/81
== END 2020-01-23 18:35 | disposition home or self-care (01) ==
LOC: ER 15:48
DX: R10.32 Left lower quadrant pain (principal); I10 Essential (primary) hypertension; J45.909 Unspecified asthma, uncomplicated; F41.9 Anxiety disorder, unspecified; K58.9 Irritable bowel syndrome, unspecified; Z91.048 Other nonmedicinal substance allergy status; Z79.899 Other long term (current) drug therapy
CPT/HCPCS: 36415; 80048-TC; 81000-TC; 85025-TC

== ENCOUNTER 2020-09-10 09:33 | Emergency (ER) | payer OTHER ==
[~2020-09-10] VITALS: Ht 180.3 cm; Wt 91.2 kg
[2020-09-10 09:56] VITALS: BP 133/75
[2020-09-10] MEDS ORDERED: IBUP-1957 PO (10:58)
--- NOTE | 2020-09-10 11:28 | NUR ---
Patient discharged to home in stable condition. Written and verbal after care instructions given. Patient verbalizes understanding of instruction.
== END 2020-09-10 11:29 | disposition home or self-care (01) ==
LOC: ER 09:36
DX: S83.8X2A Sprain of other specified parts of left knee, initial encounter (principal); I10 Essential (primary) hypertension; J45.909 Unspecified asthma, uncomplicated; F41.9 Anxiety disorder, unspecified; Z88.8 Allergy status to other drugs, medicaments and biological substances; Z79.899 Other long term (current) drug therapy; W01.0XXA Fall on same level from slipping, tripping and stumbling without subsequent striking against object, initial encounter; Y93.01 Activity, walking, marching and hiking; Y92.89 Other specified places as the place of occurrence of the external cause; Y99.8 Other external cause status
CPT/HCPCS: 73564-TC

== ENCOUNTER 2021-01-05 18:17 | Emergency (ER) | payer OTHER ==
[~2021-01-05] VITALS: Ht 180.3 cm; Wt 93.9 kg
[~2021-01-05 18:17] MED LIST changes: +IBUP-1957 PO
--- NOTE | 2021-01-05 18:58 | NUR ---
Patient came in to the er c/o abd pain radiating to lower back x 4 days 7/10 pain scale. On room air, breathing evenly and unlabored. Connected to the monitor and pulse ox. kept comfortable, will continue to monitor accordingly.
--- NOTE | 2021-01-05 18:59 | NUR ---
IV started and blood drawned and sent to lab.
[2021-01-05 19:01] LABS: BILIRUBIN,URINE Negative (NEGATIVE); COLOR,URINE YELLOW (YELLOW); LEUKOCYTE ESTERASE ,URINE Negative (NEGATIVE); NITRITE, URINE Negative (NEGATIVE); PROTEIN,URINE Negative (NEGATIVE); UGLUCOSE Negative (NEGATIVE); UROBILINOGEN,URINE 0.2 EU/dL (0.2)
[2021-01-05 19:01] LABS: BASOPHILS % (AUTO) 0.2 % (0.0-2.0); EOSINOPHILS % (AUTO) 1.4 % (0.0-6.0); HEMATOCRIT 40 % (39-51); HEMOGLOBIN 13.4 g/dL (13.5-17.5); LYMPHOCYTES # (AUTO) 1.8 K/uL (0.8-4.8); LYMPHOCYTES % (AUTO) 33.1 % (20.0-44.0); MEAN CORPUSCULAR HGB CONC 34 g/dl (31.0-36.0); MEAN CORPUSCULAR VOLUME 91 fL (80-96); MONOCYTES # (AUTO) 0.6 K/uL (0.1-1.30); NEUTROPHILS # (AUTO) 2.8 K/uL (1.8-8.9); NEUTROPHILS % (AUTO) 53.3 % (43.0-81.0); PLATELET COUNT (AUTO) 228 K/uL (150-450); RED BLOOD CELL COUNT(AUTO) 4.35 MIL/uL (4.5-6.0); WHITE BLOOD COUNT (AUTO) 5.3 K/uL (4.3-11.0)
[2021-01-05 19:13] LABS: ALBUMIN 3.9 g/dL (3.4-5.0); BILIRUBIN,DIRECT 0.1 mg/dL (0.0-0.2); BILIRUBIN,TOTAL 0.6 mg/dL (0.2-1.0); CALCIUM, SERUM 8.5 mg/dL (8.5-10.1); CREATININE 1.1 mg/dL (0.6-1.3); POTASSIUM 4.1 mmol/L (3.5-5.1); TOTAL PROTEIN, SERUM 7.1 g/dL (6.4-8.2)
[2021-01-05] MEDS ORDERED: KETOROLAC TROMETHAMINE 15 MG/ML VIAL ONE (19:17)
[2021-01-05] MEDS: KETOROLAC TROMETHAMINE INJ 30 MG/ML VIAL IV ONE (19:20)
--- NOTE | 2021-01-05 19:54 | NUR ---
RECEVIED REPORT FROM DAY SHIFT, PATIENT IN BED RESTING,VSS, CONNECTED TO MONITOR.
[2021-01-05] MEDS ORDERED: POLY17PO4 PO (19:59)
[2021-01-05 20:30] VITALS: BP 131/72
--- NOTE | 2021-01-05 20:30 | NUR ---
Patient discharged to home in stable condition. Written and verbal after care instructions given. Patient verbalizes understanding of instruction.
== END 2021-01-05 20:30 | disposition home or self-care (01) ==
LOC: ER 18:17
DX: R10.84 Generalized abdominal pain (principal); K59.00 Constipation, unspecified; K21.9 Gastro-esophageal reflux disease without esophagitis; J45.909 Unspecified asthma, uncomplicated; I10 Essential (primary) hypertension; F41.9 Anxiety disorder, unspecified; Z98.890 Other specified postprocedural states; Z88.8 Allergy status to other drugs, medicaments and biological substances; Z79.899 Other long term (current) drug therapy
CPT/HCPCS: 36415; 80048; 80076; 81003; 83690; 85025; 96374; 99283; J1885

== ENCOUNTER 2021-11-27 19:51 | Emergency (ER) | payer OTHER ==
[~2021-11-27] VITALS: Ht 162.6 cm; Wt 79.4 kg
[~2021-11-27 19:51] MED LIST changes: +POLY17PO4 PO
--- NOTE | 2021-11-27 20:20 | NUR ---
BIBS C/O LOWER ABDOMINAL PAIN X FEW MONTHS, UNABLE TO SEE GI DOCTOR HX OF IBS. PATIENT ALERT AND ORIENTED X3. AMBULATORY WITH NON LABORED BREATHING IN BED 09 AWAITING MD VALDERRAMA.
--- NOTE | 2021-11-27 20:26 | NUR ---
URINE COLLECTED AND SENT TO LAB
[2021-11-27] MEDS ORDERED: ONDANSETRON HCL/PF 4 MG/2 ML VIAL IVP ONE (20:30)
[2021-11-27] MEDS ORDERED: IV NS 0.9% 1,000 ML BAG IV ONE (20:30)
--- NOTE | 2021-11-27 20:30 | NUR ---
20G IV LINE ESTABLSIHED AT [facility]. BLOOD DRAWN AND SENT TO LAB.
[2021-11-27] MEDS ORDERED: ONDANSETRON HCL/PF 4 MG/2 ML VIAL ONE (20:31)
[2021-11-27 20:37] LABS: BASOPHILS % (AUTO) 0.4 % (0.0-2.0); EOSINOPHILS % (AUTO) 1.7 % (0.0-6.0); HEMATOCRIT 40 % (39-51); HEMOGLOBIN 13.5 g/dL (13.5-17.5); LYMPHOCYTES # (AUTO) 1.6 K/uL (0.8-4.8); LYMPHOCYTES % (AUTO) 32.3 % (20.0-44.0); MEAN CORPUSCULAR HGB CONC 34 g/dl (31.0-36.0); MEAN CORPUSCULAR VOLUME 89 fL (80-96); MONOCYTES # (AUTO) 0.7 K/uL (0.1-1.30); MONOCYTES % (AUTO) 13.9 % (2.0-12.0); NEUTROPHILS # (AUTO) 2.6 K/uL (1.8-8.9); NEUTROPHILS % (AUTO) 51.7 % (43.0-81.0); PLATELET COUNT (AUTO) 234 K/uL (150-450)
[2021-11-27 20:53] LABS: BILIRUBIN,DIRECT 0.1 mg/dL (0.0-0.2); BILIRUBIN,TOTAL 0.7 mg/dL (0.2-1.0); CALCIUM, SERUM 8.6 mg/dL (8.5-10.1); CREATININE 1.2 mg/dL (0.6-1.3); POTASSIUM 4.1 mmol/L (3.5-5.1); TOTAL PROTEIN, SERUM 7.2 g/dL (6.4-8.2)
--- NOTE | 2021-11-27 20:53 | NUR ---
PT RETURNED FROM CT VIA [facility]
[2021-11-27] MEDS ORDERED: FAMOTIDINE (20 MG) 20 MG TABLET PO ONE (21:30)
[2021-11-27] MEDS ORDERED: predniSONE 10 MG TABLET PO ONE (21:30)
--- NOTE | 2021-11-27 21:58 | NUR ---
Patient discharged to home in stable condition. Written and verbal after care instructions given. Patient verbalizes understanding of instruction. IV line removed and PT ambulatory with steady gait.
[2021-11-27 22:02] VITALS: BP 123/81
== END 2021-11-27 22:02 | disposition home or self-care (01) ==
LOC: ER 20:14
DX: G89.29 Other chronic pain (principal); R10.13 Epigastric pain; K58.9 Irritable bowel syndrome, unspecified; I10 Essential (primary) hypertension; J45.909 Unspecified asthma, uncomplicated; F41.9 Anxiety disorder, unspecified; Z88.8 Allergy status to other drugs, medicaments and biological substances; Z79.899 Other long term (current) drug therapy
CPT/HCPCS: 36415; 71045; 74176; 80048; 80076; 83690; 85025; 96361; 96374; 99285; J2405; J7030; J7512

== ENCOUNTER 2022-09-22 16:53 | Emergency (ER) | payer BC, OTHER ==
[~2022-09-22] VITALS: Ht 180.3 cm; Wt 99.3 kg
[2022-09-22] MEDS ORDERED: KETO10TA2 PO (17:30)
[2022-09-22] MEDS ORDERED: SULF1TAB48 PO (17:30)
[2022-09-22] MEDS ORDERED: KETOROLAC TROMETHAMINE INJ 30 MG/ML VIAL ONE (17:33)
[2022-09-22] MEDS: KETOROLAC TROMETHAMINE INJ 30 MG/ML VIAL IM ONE (17:37)
--- NOTE | 2022-09-22 18:48 | NUR ---
Patient discharged to home in stable condition. Written and verbal after care instructions given. Patient verbalizes understanding of instruction.
[2022-09-22 18:49] VITALS: BP 130/85
== END 2022-09-22 18:49 | disposition home or self-care (01) ==
LOC: ER 16:59
DX: L03.031 Cellulitis of right toe (principal); M70.32 Other bursitis of elbow, left elbow; I10 Essential (primary) hypertension; J45.909 Unspecified asthma, uncomplicated; F41.9 Anxiety disorder, unspecified; Z88.8 Allergy status to other drugs, medicaments and biological substances; Z79.899 Other long term (current) drug therapy; Y93.89 Activity, other specified
CPT/HCPCS: 99283; 96372; 73630; J1885

== ENCOUNTER 2022-10-17 05:32 | Emergency (ER) | payer BC ==
[~2022-10-17] VITALS: Ht 180.3 cm; Wt 99.3 kg
[~2022-10-17 05:32] MED LIST changes: +KETO10TA2 PO; +SULF1TAB48 PO
--- NOTE | 2022-10-17 06:24 | NUR ---
BIBS C/O L ELBOW PAIN X 5 WEEKS.
--- NOTE | 2022-10-17 06:24 | NUR ---
XRAY AT BEDSIDE
[2022-10-17 07:56] VITALS: BP 110/71
--- NOTE | 2022-10-17 07:58 | NUR ---
Patient discharged to home in stable condition. Written and verbal after care instructions given. Patient verbalizes understanding of instruction.
== END 2022-10-17 07:58 | disposition home or self-care (01) ==
LOC: ER 05:37
DX: M70.22 Olecranon bursitis, left elbow (principal); I10 Essential (primary) hypertension; J45.909 Unspecified asthma, uncomplicated; F41.9 Anxiety disorder, unspecified; Z88.8 Allergy status to other drugs, medicaments and biological substances; Y93.89 Activity, other specified
CPT/HCPCS: 73080-TC

== ENCOUNTER 2023-02-19 09:57 | Emergency (ER) | payer OTHER, BC ==
[~2023-02-19] VITALS: Ht 180.3 cm; Wt 98.9 kg
[2023-02-19 10:14] VITALS: BP 127/81; TEMP 98.4
[2023-02-19 10:15] VITALS: O2SAT 99
== END 2023-02-19 11:49 | disposition home or self-care (01) ==
LOC: ER 10:12
DX: Z76.0 Encounter for issue of repeat prescription (principal); I10 Essential (primary) hypertension; J45.909 Unspecified asthma, uncomplicated; F41.9 Anxiety disorder, unspecified

== ENCOUNTER 2024-01-28 06:06 | Emergency (ER) | payer MEDICARE, BC ==
[~2024-01-28] VITALS: Ht 180.3 cm; Wt 95.3 kg
[~2024-01-28 06:06] MED LIST changes: +SIME180C35 PO
[2024-01-28] MEDS ORDERED: NAPR-1164 PO (06:32)
[2024-01-28] MEDS ORDERED: CYCL5TAB PO (06:32)
[2024-01-28] MEDS ORDERED: KETOROLAC TROMETHAMINE 15 MG/ML VIAL ONE (06:37)
[2024-01-28] MEDS: KETOROLAC TROMETHAMINE 15 MG/ML VIAL IM ONE (06:48)
[2024-01-28 06:49] VITALS: BP 120/70; TEMP 98.1; O2SAT 99
== END 2024-01-28 06:51 | disposition home or self-care (01) ==
LOC: ER 06:09
DX: S13.4XXA Sprain of ligaments of cervical spine, initial encounter (principal); I10 Essential (primary) hypertension; J45.909 Unspecified asthma, uncomplicated; F41.9 Anxiety disorder, unspecified; Z87.19 Personal history of other diseases of the digestive system; Z91.040 Latex allergy status; X58.XXXA Exposure to other specified factors, initial encounter; Y93.89 Activity, other specified; Y92.89 Other specified places as the place of occurrence of the external cause; Y99.8 Other external cause status
CPT/HCPCS: 99283; 96372; J1885

== ENCOUNTER 2024-09-08 16:21 | Emergency (ER) | payer OTHER ==
[~2024-09-08] VITALS: Ht 180.3 cm; Wt 99.8 kg
[~2024-09-08 16:21] MED LIST changes: +CYCL5TAB PO; +NAPR-1164 PO
[2024-09-08 16:29] VITALS: BP 134/88; TEMP 98
[2024-09-08] MEDS ORDERED: ACET-2605 PO (17:01)
[2024-09-08] MEDS ORDERED: NAPR500T6 PO (17:01)
[2024-09-08] MEDS ORDERED: ONDA4TAB11 PO (17:01)
[2024-09-08] MEDS ORDERED: ACETAMINOPHEN ES 500 MG TABLET ONE (17:03)
[2024-09-08 17:07] VITALS: O2SAT 98
[2024-09-08] MEDS: ACETAMINOPHEN ES 500 MG TABLET PO ONE (17:07)
== END 2024-09-08 17:08 | disposition home or self-care (01) ==
LOC: ER 16:27
DX: S06.0XAA Concussion with loss of consciousness status unknown, initial encounter (principal); I10 Essential (primary) hypertension; F41.9 Anxiety disorder, unspecified; J45.909 Unspecified asthma, uncomplicated; K58.9 Irritable bowel syndrome, unspecified; Z79.1 Long term (current) use of non-steroidal anti-inflammatories (NSAID); Z79.82 Long term (current) use of aspirin; Z79.899 Other long term (current) drug therapy; Z88.8 Allergy status to other drugs, medicaments and biological substances; Z91.041 Radiographic dye allergy status; W22.8XXA Striking against or struck by other objects, initial encounter; Y93.89 Activity, other specified; Y92.69 Other specified industrial and construction area as the place of occurrence of the external cause; Y99.0 Civilian activity done for income or pay

== ENCOUNTER 2024-09-22 05:33 | Emergency (ER) | payer MEDICARE, OTHER ==
[~2024-09-22 05:33] MED LIST changes: +ACET-2605 PO; +NAPR500T6 PO; +ONDA4TAB11 PO
== END 2024-09-22 07:30 | disposition left against medical advice (07) ==
LOC: ER 05:48
DX: M25.561 Pain in right knee (principal); Z53.21 Procedure and treatment not carried out due to patient leaving prior to being seen by health care provider

== ENCOUNTER 2024-09-24 13:00 | Emergency (ER) | payer OTHER ==
[~2024-09-24] VITALS: Ht 180.3 cm; Wt 99.8 kg
[2024-09-24 13:17] VITALS: BP 124/76; TEMP 97.9
[2024-09-24 13:30] VITALS: O2SAT 99
[2024-09-24] MEDS ORDERED: KETOROLAC TROMETHAMINE INJ 30 MG/ML VIAL ONE (14:03)
[2024-09-24] MEDS ORDERED: ACETAMINOPHEN ES 500 MG TABLET ONE (14:03)
[2024-09-24] MEDS: ACETAMINOPHEN ES 500 MG TABLET PO ONE (14:10)
[2024-09-24] MEDS: KETOROLAC TROMETHAMINE INJ 30 MG/ML VIAL IM ONE (14:10)
== END 2024-09-24 15:32 | disposition home or self-care (01) ==
LOC: ER 13:02
DX: M25.561 Pain in right knee (principal); G89.29 Other chronic pain; F41.9 Anxiety disorder, unspecified; I10 Essential (primary) hypertension; J45.909 Unspecified asthma, uncomplicated; K58.9 Irritable bowel syndrome, unspecified; Z79.1 Long term (current) use of non-steroidal anti-inflammatories (NSAID); Z79.899 Other long term (current) drug therapy; Z88.8 Allergy status to other drugs, medicaments and biological substances; Z91.041 Radiographic dye allergy status
CPT/HCPCS: 99283; 96372; 73564; J1885

== ENCOUNTER 2024-10-25 16:37 | Emergency (ER) | payer MEDICARE, OTHER ==
[~2024-10-25] VITALS: Ht 180.3 cm; Wt 99.8 kg
[2024-10-25] MEDS ORDERED: diphenhydrAMINE HCL 50 MG/ML VIAL ONE (17:14)
[2024-10-25] MEDS ORDERED: KETOROLAC TROMETHAMINE 15 MG/ML VIAL ONE (17:14)
[2024-10-25] MEDS ORDERED: METOCLOPRAMIDE HCL 10 MG/2 ML VIAL ONE (17:15)
[2024-10-25] MEDS: IV NS 0.9% 1,000 ML BAG IV ONE (17:52)
[2024-10-25] MEDS: METOCLOPRAMIDE HCL 10 MG/2 ML VIAL IV ONE (17:53)
[2024-10-25] MEDS: diphenhydrAMINE HCL 50 MG/ML VIAL IV ONE (17:53)
[2024-10-25] MEDS: KETOROLAC TROMETHAMINE 15 MG/ML VIAL IV ONE (17:54)
[2024-10-25] MEDS ORDERED: CYCL5TAB PO (18:49)
[2024-10-25] MEDS: CYCLOBENZAPRINE 10 MG TABLET PO ONE (19:14)
[2024-10-25 19:16] VITALS: BP 128/78; TEMP 98.4; O2SAT 98
[2024-10-25] MEDS ORDERED: CYCLOBENZAPRINE 10 MG TABLET ONE (19:16)
== END 2024-10-25 19:17 | disposition home or self-care (01) ==
LOC: ER 16:43
DX: G44.209 Tension-type headache, unspecified, not intractable (principal); F41.9 Anxiety disorder, unspecified; I10 Essential (primary) hypertension; J45.909 Unspecified asthma, uncomplicated; K58.9 Irritable bowel syndrome, unspecified; Z79.1 Long term (current) use of non-steroidal anti-inflammatories (NSAID); Z79.899 Other long term (current) drug therapy; Z88.8 Allergy status to other drugs, medicaments and biological substances; Z91.041 Radiographic dye allergy status
CPT/HCPCS: 99284; 96374; 96375; 96361; J1885; J1200; J2765; J7030

== ENCOUNTER 2024-12-30 05:32 | Emergency (ER) | payer SELFPAY ==
[~2024-12-30] VITALS: Ht 180.3 cm; Wt 95.3 kg
[2024-12-30] MEDS ORDERED: KETO10TA2 PO (07:26)
[2024-12-30] MEDS ORDERED: KETOROLAC TROMETHAMINE INJ 30 MG/ML VIAL ONE (07:47)
[2024-12-30] MEDS: KETOROLAC TROMETHAMINE INJ 30 MG/ML VIAL IM ONE (07:52)
[2024-12-30 07:54] VITALS: BP 125/70; TEMP 98.6; O2SAT 98
== END 2024-12-30 07:55 | disposition home or self-care (01) ==
LOC: ER 05:44
DX: M25.561 Pain in right knee (principal); I10 Essential (primary) hypertension; J45.909 Unspecified asthma, uncomplicated; F41.9 Anxiety disorder, unspecified; K58.9 Irritable bowel syndrome, unspecified; Z79.1 Long term (current) use of non-steroidal anti-inflammatories (NSAID); Z79.899 Other long term (current) drug therapy; Z88.8 Allergy status to other drugs, medicaments and biological substances
CPT/HCPCS: 99283; J1885